=== PATIENT | male | born 2000 | race Caucasian/White ===

== ENCOUNTER 2025-04-24 11:29 | Inpatient (IN) | payer MEDICAID ==
[~2025-04-24] VITALS: Ht 167.6 cm; Wt 49.0 kg
[2025-04-24] VITALS (16 sets, daily range): BP systolic 78–123; BP diastolic 55–101; PULSE 51–89; RESP 7–23; TEMP 36.4–36.4736; O2SAT 99–100
[~2025-04-24 11:29] MED LIST: ATOR20TA PO
[2025-04-24 12:35] LABS: BASOPHILS % 0.6 % (0.0-2.0); EOSINOPHILS % 4.6 % (0.0-5.0); HEMATOCRIT. 43.3 % (42.0-52.0); HEMOGLOBIN. 14.9 g/dL (14.0-18.0); LYMPHOCYTES % 20.7 % (20.0-50.0); MEAN PLATELET VOLUME 11.5 fl (7.4-10.4); MONOCYTES % 10.5 % (2.0-8.0); NEUTROPHILS % 63.6 % (40.0-76.0); PLATELET 114 x1000/uL (130-400); RED BLOOD CELL COUNT 4.52 mill/uL (4.7-6.1); RED CELL DISTRIBUTION WIDTH 12.7 % (11.6-14.6)
[2025-04-24 13:00] LABS: CREATININE 0.6 mg/dL (0.6-1.3); UREA NITROGEN BLOOD 14 mg/dL (9-23)
[2025-04-24] MEDS ORDERED: MIDAZOLAM HCL 2 MG/2 ML VIAL IV NR (14:15)
[2025-04-24] MEDS: MIDAZOLAM HCL 2 MG/2 ML VIAL IV ONE ×3 (14:20→15:05)
[2025-04-24] MEDS ORDERED: FENTANYL 2500MCG/250ML PMX 250 ML IV PRN ×2 (15:00→21:30)
[2025-04-24] MEDS: PROPOFOL 10MG/ML 100ML 100 ML IV SCH ×2 (15:06→15:30)
[2025-04-24] MEDS: FENTANYL 2500MCG/250ML PMX 250 ML IV PRN (15:35)
[2025-04-24] MEDS ORDERED: IPRATROPIUM/ALBUTEROL 0.5-3(2.5)MG/3ML NEB HHN PRN (16:00)
[2025-04-24] MEDS ORDERED: CLONIDINE 0.1MG TABLET PO PRN (16:00)
[2025-04-24] MEDS ORDERED: DOCUSATE SODIUM 100MG CAPSULE PO PRN (16:00)
[2025-04-24] MEDS ORDERED: ONDANSETRON HCL 4MG/2ML INJ IV PRN (16:00)
[2025-04-24] MEDS ORDERED: HYDROCODONE/ACETAMINOPHEN 5/325MG TABLET PO PRN (16:00)
[2025-04-24] MEDS ORDERED: MAGNESIUM/ALUMINUM HYDROXIDE/SIMETHICONE 30ML UDC PO PRN (16:00)
[2025-04-24] MEDS ORDERED: NALOXONE HCL 0.4MG/ML VIAL IV PRN (16:00)
[2025-04-24] MEDS: SODIUM CHLORIDE 0.9% 1,000 ML IV SCH (16:06)
[2025-04-24 16:30] LABS: BG BASE EXCESS 6.2 mmol/L (-2.0-3.0); BG CARBOXYHEMOGLOBIN 0.2 % (0.5-1.5); BG DEOXYHEMOGLOBIN 0.2 % (0.0-5.0); BG FRACTION INSPIRED OXYGEN 100; BG HCO3 ACT 29.8 mmol/L (21.0-28.0); BG METHEMOGLOBIN 0.2 % (0.5-1.5); BG OXYGEN SATURATION 99.8 % (94.0-98.0); BG OXYHEMOGLOBIN 99.4 % (94.0-98.0); BG PCO2 39.4 mmHg (35.0-48.0); BG PEEP (cmH2O) 0 cmH2O; BG PH 7.497 (7.350-7.450); BG PO2 461.1 mmHg (83.0-108.0); BG SAMPLE SITE RIGHT RADIAL; BG TIDAL VOLUME(mL) 400.0 mL; BG TOTAL HEMOGLOBIN 15.0 g/dL (13.5-17.5); BG VENT MODE VENT - AC; BG VENT RATE 14.0 set
[2025-04-24] MEDS: PROPOFOL 10MG/ML 100ML 100 ML IV PRN (22:21)
[2025-04-24] MEDS: NOREPINEPHRINE 8MG/250ML PMX 250 ML IV PRN (22:24)
[2025-04-25] VITALS (106 sets, daily range): BP systolic 78–120; BP diastolic 46–91; PULSE 49–135; RESP 11–26; TEMP 34.7–38.6; O2SAT 10–100
[2025-04-25] MEDS: MIDAZOLAM 100MG/100ML PMX 100 ML IV PRN (03:27)
[2025-04-25 06:11] LABS: BASOPHILS % 0.5 % (0.0-2.0); EOSINOPHILS % 4.1 % (0.0-5.0); HEMATOCRIT. 38.7 % (42.0-52.0); HEMOGLOBIN. 13.2 g/dL (14.0-18.0); LYMPHOCYTES % 21.4 % (20.0-50.0); MEAN PLATELET VOLUME 11.6 fl (7.4-10.4); MONOCYTES % 9.3 % (2.0-8.0); NEUTROPHILS % 64.7 % (40.0-76.0); PLATELET 110 x1000/uL (130-400); RED BLOOD CELL COUNT 3.98 mill/uL (4.7-6.1); RED CELL DISTRIBUTION WIDTH 12.6 % (11.6-14.6)
[2025-04-25 06:23] LABS: CREATININE 0.5 mg/dL (0.6-1.3); TRIGLYCERIDE 105 mg/dL (0-150); UREA NITROGEN BLOOD 12 mg/dL (9-23)
[2025-04-25] MEDS: FENTANYL 2500MCG/250ML PMX 250 ML IV PRN (10:24)
[2025-04-25] MEDS ORDERED: IOHEXOL-300 100 ML BOTTLE ONE (13:29)
[2025-04-25 20:01] LABS: BG BASE EXCESS -0.7 mmol/L (-2.0-3.0); BG CARBOXYHEMOGLOBIN 1.0 % (0.5-1.5); BG DEOXYHEMOGLOBIN 2.2 % (0.0-5.0); BG FRACTION INSPIRED OXYGEN 40; BG HCO3 ACT 22.9 mmol/L (21.0-28.0); BG METHEMOGLOBIN 0.1 % (0.5-1.5); BG OXYGEN SATURATION 97.8 % (94.0-98.0); BG OXYHEMOGLOBIN 96.7 % (94.0-98.0); BG PCO2 35.0 mmHg (35.0-48.0); BG PH 7.434 (7.350-7.450); BG PIP 20.0 cmH2O; BG PO2 95.2 mmHg (83.0-108.0); BG SAMPLE SITE RIGHT RADIAL; BG TOTAL HEMOGLOBIN 14.4 g/dL (13.5-17.5); BG TOTAL RESPIRATORY RATE 12 b/min; BG VENT MODE VENT - P/C; BG VENT RATE 12.0 set
[2025-04-25] MEDS: ACETAMINOPHEN 325MG TABLET PO PRN (21:49)
[2025-04-26] VITALS (104 sets, daily range): BP systolic 81–130; BP diastolic 57–100; PULSE 59–95; RESP 9–16; TEMP 36.4–37.8; O2SAT 95–100
[2025-04-26] MEDS: PROPOFOL 10MG/ML 100ML 100 ML IV PRN (02:07)
[2025-04-26 06:51] LABS: BASOPHILS % 0.2 % (0.0-2.0); EOSINOPHILS % 1.5 % (0.0-5.0); HEMATOCRIT. 39.4 % (42.0-52.0); HEMOGLOBIN. 13.5 g/dL (14.0-18.0); LYMPHOCYTES % 20.8 % (20.0-50.0); MEAN PLATELET VOLUME 11.0 fl (7.4-10.4); MONOCYTES % 8.7 % (2.0-8.0); NEUTROPHILS % 68.8 % (40.0-76.0); PLATELET 110 x1000/uL (130-400); RED BLOOD CELL COUNT 4.05 mill/uL (4.7-6.1); RED CELL DISTRIBUTION WIDTH 12.6 % (11.6-14.6)
[2025-04-26 06:52] LABS: CREATININE 0.5 mg/dL (0.6-1.3); UREA NITROGEN BLOOD 8 mg/dL (9-23)
[2025-04-26] MEDS: MIDODRINE HCL 5MG TABLET PO SCH (08:44)
[2025-04-26] MEDS: ENOXAPARIN 40MG/0.4ML SYR SUBCUT SCH (08:45)
[2025-04-26] MEDS: PIPERACILLIN/TAZO 3.375G/50ML 50 ML IV SCH (10:44)
[2025-04-26 11:21] LABS: CLARITY URINE CLEAR (CLEAR); COLOR URINE YELLOW (YELLOW); GLUCOSE URINE NEGATIVE (NEGATIVE); KETONES URINE 2+ (NEGATIVE); LEUKOCYTE ESTERASE URINE 2+ (NEGATIVE); NITRITE URINE NEGATIVE (NEGATIVE); OCCULT BLOOD URINE NEGATIVE (NEGATIVE); PH URINE 6.5 (4.5-8.0); PROTEIN URINE NEGATIVE (NEGATIVE); SPECIFIC GRAVITY URINE 1.009 (1.005-1.030); UROBILINOGEN URINE 0.2 E.U./dL (0.2-1.0)
[2025-04-26 11:42] LABS: BACTERIA URINE NONE SEEN; RBC URINE 0-2 /hpf (0-2); SQUAMOUS EPITHELIAL CELL URINE RARE /lpf (RARE/1+); YEAST URINE NONE SEEN
[2025-04-26] MEDS: MINOXIDIL 2.5MG TABLET ONE (11:44)
[2025-04-26] MEDS: CHLORHEXIDINE GLUCONATE 4% EXTERNAL USE TOP SCH (20:26)
[2025-04-27] VITALS (92 sets, daily range): BP systolic 92–138; BP diastolic 64–111; PULSE 57–91; RESP 11–17; TEMP 35.8–37.2; O2SAT 96–100
[2025-04-27] MEDS: CHLORHEXIDINE GLUCONATE 4% EXTERNAL USE TOP SCH (05:12)
[2025-04-27 05:33] LABS: BASOPHILS % 0.2 % (0.0-2.0); EOSINOPHILS % 5.3 % (0.0-5.0); HEMATOCRIT. 37.4 % (42.0-52.0); HEMOGLOBIN. 12.7 g/dL (14.0-18.0); LYMPHOCYTES % 16.5 % (20.0-50.0); MEAN PLATELET VOLUME 11.7 fl (7.4-10.4); MONOCYTES % 6.9 % (2.0-8.0); NEUTROPHILS % 71.1 % (40.0-76.0); PLATELET 108 x1000/uL (130-400); RED BLOOD CELL COUNT 3.86 mill/uL (4.7-6.1); RED CELL DISTRIBUTION WIDTH 12.9 % (11.6-14.6)
[2025-04-27 05:41] LABS: CREATININE 0.5 mg/dL (0.6-1.3); TRIGLYCERIDE 143 mg/dL (0-150); UREA NITROGEN BLOOD 5 mg/dL (9-23)
[2025-04-27] MEDS: PROPOFOL 10MG/ML 100ML 100 ML IV PRN (07:19)
[2025-04-27] MEDS ORDERED: LIDOCAINE HCL/EPINEPHRINE 1%-EPI 1:100,000 20ML VIAL ONE (07:34)
[2025-04-27] MEDS ORDERED: ROCURONIUM BROMIDE 10MG/ML VIAL 5ML IV ONE (08:10)
[2025-04-27] MEDS ORDERED: PROPOFOL 200MG/20ML VIAL IV ONE (08:10)
[2025-04-27] MEDS ORDERED: FENTANYL CITRATE/PF 50MCG/ML 2ML VIAL ONE (08:11)
[2025-04-27] MEDS ORDERED: PHENYLEPHRINE HCL 10MG/ML 1ML IV ONE (08:30)
[2025-04-27] MEDS ORDERED: ONDANSETRON HCL 4MG/2ML INJ ONE (08:50)
[2025-04-27] MEDS ORDERED: METOCLOPRAMIDE HCL 10MG/2ML VIAL ONE (08:50)
[2025-04-27] MEDS ORDERED: SODIUM CHLORIDE 0.9% 500 ML IV PRN (10:00)
[2025-04-27] MEDS ORDERED: CALCIUM CHLORIDE 5,000 MG in DEXT 5% WATER 500 ML IV PRN (10:00)
[2025-04-27] MEDS ORDERED: CALCIUM CHLORIDE 3,000 MG in DEXT 5% WATER 250 ML IV PRN (10:00)
[2025-04-27] MEDS ORDERED: DEXMEDETOMIDINE 100 ML IV PRN (10:45)
[2025-04-27] MEDS: DEXMEDETOMIDINE 250 ML IV PRN (10:57)
[2025-04-27] MEDS: IPRATROPIUM/ALBUTEROL 0.5-3(2.5)MG/3ML NEB HHN SCH (13:57)
[2025-04-27] MEDS: MIDAZOLAM 100MG/100ML PMX 100 ML IV PRN (15:35)
[2025-04-27 15:56] LABS: BASOPHILS % 0.2 % (0.0-2.0); EOSINOPHILS % 3.2 % (0.0-5.0); HEMATOCRIT. 36.4 % (42.0-52.0); HEMOGLOBIN. 12.8 g/dL (14.0-18.0); LYMPHOCYTES % 16.6 % (20.0-50.0); MEAN PLATELET VOLUME 11.5 fl (7.4-10.4); MONOCYTES % 7.5 % (2.0-8.0); NEUTROPHILS % 72.5 % (40.0-76.0); PLATELET 103 x1000/uL (130-400); RED BLOOD CELL COUNT 3.81 mill/uL (4.7-6.1); RED CELL DISTRIBUTION WIDTH 12.8 % (11.6-14.6)
[2025-04-27] MEDS: MIDODRINE HCL 5MG TABLET PO SCH (16:03)
[2025-04-27 16:09] LABS: CREATININE 0.4 mg/dL (0.6-1.3); UREA NITROGEN BLOOD < 5 mg/dL (9-23)
[2025-04-27] MEDS ORDERED: KCL 10MEQ/50ML PREMIX 100 ML IV PRN (16:30)
[2025-04-27] MEDS: MAGNESIUM 2 G PREMIX 50 ML IV SCH (16:39)
[2025-04-27] MEDS: KCL 10MEQ/50ML PREMIX 150 ML IV PRN (16:39)
[2025-04-28] VITALS (102 sets, daily range): BP systolic 74–144; BP diastolic 41–113; PULSE 74–138; RESP 12–23; TEMP 36–38.6; O2SAT 94–100
[2025-04-28 06:18] LABS: BASOPHILS % 0.4 % (0.0-2.0); EOSINOPHILS % 2.4 % (0.0-5.0); HEMATOCRIT. 39.9 % (42.0-52.0); HEMOGLOBIN. 13.6 g/dL (14.0-18.0); LYMPHOCYTES % 10.4 % (20.0-50.0); MEAN PLATELET VOLUME 12.0 fl (7.4-10.4); MONOCYTES % 6.9 % (2.0-8.0); NEUTROPHILS % 79.9 % (40.0-76.0); PLATELET 108 x1000/uL (130-400); RED BLOOD CELL COUNT 4.03 mill/uL (4.7-6.1); RED CELL DISTRIBUTION WIDTH 12.9 % (11.6-14.6)
[2025-04-28 06:33] LABS: CREATININE 0.5 mg/dL (0.6-1.3)
[2025-04-28 06:34] LABS: UREA NITROGEN BLOOD 5 mg/dL (9-23)
[2025-04-28] MEDS ORDERED: LIDOCAINE HCL 1% 10 MG/ML 10ML VIAL ONE (08:11)
[2025-04-28 09:51] LABS: BG BASE EXCESS -7.6 mmol/L (-2.0-3.0); BG CARBOXYHEMOGLOBIN 0.2 % (0.5-1.5); BG DEOXYHEMOGLOBIN 3.4 % (0.0-5.0); BG FRACTION INSPIRED OXYGEN 40; BG HCO3 ACT 15.5 mmol/L (21.0-28.0); BG METHEMOGLOBIN 0.3 % (0.5-1.5); BG OXYGEN SATURATION 96.6 % (94.0-98.0); BG OXYHEMOGLOBIN 96.1 % (94.0-98.0); BG PCO2 25.2 mmHg (35.0-48.0); BG PH 7.406 (7.350-7.450); BG PIP 20.0 cmH2O; BG PO2 87.2 mmHg (83.0-108.0); BG SAMPLE SITE ALINE; BG TOTAL HEMOGLOBIN 12.3 g/dL (13.5-17.5); BG VENT MODE VENT - P/C; BG VENT RATE 12.0 set
[2025-04-28] MEDS: LACTATED RINGERS 500 ML IV SCH (17:02)
[2025-04-28] MEDS ORDERED: DEXMEDETOMIDINE 250 ML IV PRN (20:00)
[2025-04-29] VITALS (107 sets, daily range): BP systolic 71–149; BP diastolic 42–108; PULSE 69–110; RESP 10–20; TEMP 36.5–37; O2SAT 97–100
[2025-04-29] MEDS ORDERED: HYDR-459 PO (01:17)
[2025-04-29] MEDS ORDERED: LEVO75TA7 PO (01:17)
[2025-04-29] MEDS ORDERED: OMEP10SU2 PO (01:17)
[2025-04-29] MEDS ORDERED: HYDR-3735 PO (01:17)
[2025-04-29 06:19] LABS: BASOPHILS % 0.2 % (0.0-2.0); EOSINOPHILS % 4.4 % (0.0-5.0); HEMATOCRIT. 36.4 % (42.0-52.0); HEMOGLOBIN. 12.6 g/dL (14.0-18.0); LYMPHOCYTES % 14.8 % (20.0-50.0); MEAN PLATELET VOLUME 11.0 fl (7.4-10.4); MONOCYTES % 8.0 % (2.0-8.0); NEUTROPHILS % 72.6 % (40.0-76.0); PLATELET 108 x1000/uL (130-400); RED BLOOD CELL COUNT 3.78 mill/uL (4.7-6.1); RED CELL DISTRIBUTION WIDTH 12.5 % (11.6-14.6)
[2025-04-29 06:46] LABS: CREATININE 0.5 mg/dL (0.6-1.3)
[2025-04-29 06:47] LABS: UREA NITROGEN BLOOD < 5 mg/dL (9-23)
[2025-04-29 14:02] LABS: BG BASE EXCESS -0.6 mmol/L (-2.0-3.0); BG CARBOXYHEMOGLOBIN 0.2 % (0.5-1.5); BG DEOXYHEMOGLOBIN 0.9 % (0.0-5.0); BG FRACTION INSPIRED OXYGEN 40; BG HCO3 ACT 21.7 mmol/L (21.0-28.0); BG METHEMOGLOBIN 0.3 % (0.5-1.5); BG OXYGEN SATURATION 99.1 % (94.0-98.0); BG OXYHEMOGLOBIN 98.6 % (94.0-98.0); BG PCO2 30.2 mmHg (35.0-48.0); BG PEEP (cmH2O) 0 cmH2O; BG PH 7.475 (7.350-7.450); BG PO2 135.8 mmHg (83.0-108.0); BG SAMPLE SITE ALINE; BG TOTAL HEMOGLOBIN 16.5 g/dL (13.5-17.5); BG VENT MODE VENT - P/C; BG VENT RATE 12.0 set
[2025-04-30] VITALS (97 sets, daily range): BP systolic 70–143; BP diastolic 38–107; PULSE 82–118; RESP 12–21; TEMP 36.3–37.2; O2SAT 80–100
[2025-04-30 06:30] LABS: BASOPHILS % 0.5 % (0.0-2.0); EOSINOPHILS % 7.5 % (0.0-5.0); HEMATOCRIT. 38.8 % (42.0-52.0); HEMOGLOBIN. 13.2 g/dL (14.0-18.0); LYMPHOCYTES % 18.9 % (20.0-50.0); MEAN PLATELET VOLUME 11.2 fl (7.4-10.4); MONOCYTES % 7.8 % (2.0-8.0); NEUTROPHILS % 65.3 % (40.0-76.0); PLATELET 122 x1000/uL (130-400); RED BLOOD CELL COUNT 4.00 mill/uL (4.7-6.1); RED CELL DISTRIBUTION WIDTH 12.6 % (11.6-14.6)
[2025-04-30 06:53] LABS: INR 0.9
[2025-04-30 06:58] LABS: CREATININE 0.5 mg/dL (0.6-1.3); UREA NITROGEN BLOOD 6 mg/dL (9-23)
[2025-04-30 07:00] LABS: PHOSPHORUS 3.7 mg/dL (2.5-4.9)
[2025-04-30 08:51] LABS: BG BASE EXCESS -1.2 mmol/L (-2.0-3.0); BG CARBOXYHEMOGLOBIN 0.7 % (0.5-1.5); BG DEOXYHEMOGLOBIN 1.5 % (0.0-5.0); BG FRACTION INSPIRED OXYGEN 40; BG HCO3 ACT 24.3 mmol/L (21.0-28.0); BG METHEMOGLOBIN 0.1 % (0.5-1.5); BG OXYGEN SATURATION 98.5 % (94.0-98.0); BG OXYHEMOGLOBIN 97.7 % (94.0-98.0); BG PCO2 43.6 mmHg (35.0-48.0); BG PH 7.364 (7.350-7.450); BG PIP 20.0 cmH2O; BG PO2 119.4 mmHg (83.0-108.0); BG SAMPLE SITE RIGHT RADIAL; BG TOTAL HEMOGLOBIN 14.2 g/dL (13.5-17.5); BG TOTAL RESPIRATORY RATE 12 b/min; BG VENT MODE VENT - P/C; BG VENT RATE 12.0 set
[2025-04-30] MEDS: MIDODRINE HCL 5MG TABLET PO SCH (14:02)
[2025-04-30] MEDS: MAGNESIUM 2 G PREMIX 50 ML IV NR (14:02)
[2025-04-30] MEDS ORDERED: FENTANYL 2500MCG/250ML PMX 250 ML IV PRN (16:00)
[2025-04-30] MEDS: FENTANYL 2500MCG/250ML PMX 250 ML IV PRN (17:06)
[2025-05-01] VITALS (113 sets, daily range): BP systolic 76–123; BP diastolic 39–109; PULSE 86–126; RESP 12–28; TEMP 36.6–37.9; O2SAT 96–100
[2025-05-01 07:19] LABS: BASOPHILS % 0.2 % (0.0-2.0); EOSINOPHILS % 4.8 % (0.0-5.0); HEMATOCRIT. 37.7 % (42.0-52.0); HEMOGLOBIN. 12.9 g/dL (14.0-18.0); LYMPHOCYTES % 17.4 % (20.0-50.0); MEAN PLATELET VOLUME 10.9 fl (7.4-10.4); MONOCYTES % 9.5 % (2.0-8.0); NEUTROPHILS % 68.1 % (40.0-76.0); PLATELET 130 x1000/uL (130-400); RED BLOOD CELL COUNT 3.82 mill/uL (4.7-6.1); RED CELL DISTRIBUTION WIDTH 12.7 % (11.6-14.6)
[2025-05-01 07:40] LABS: CREATININE 0.6 mg/dL (0.6-1.3); UREA NITROGEN BLOOD 9 mg/dL (9-23)
[2025-05-01] MEDS: QUETIAPINE FUMARATE 25MG TABLET PO SCH ×2 (08:54→20:54)
[2025-05-01] MEDS: ACETAMINOPHEN 325MG TABLET PO PRN (12:27)
[2025-05-01] MEDS: DEXT 5%/0.9% NACL 1,000 ML IV SCH (15:38)
[2025-05-01] MEDS ORDERED: QUETIAPINE FUMARATE 25MG TABLET PO SCH (21:00)
[2025-05-02] VITALS (108 sets, daily range): BP systolic 75–158; BP diastolic 53–136; PULSE 71–142; RESP 10–28; TEMP 36.6–37.7; O2SAT 97–100
[2025-05-02] MEDS: MIDODRINE HCL 5MG TABLET PO SCH (00:11)
[2025-05-02] MEDS: METOCLOPRAMIDE HCL 10MG/2ML VIAL IV SCH (01:06)
[2025-05-02 05:41] LABS: BASOPHILS % 0.4 % (0.0-2.0); EOSINOPHILS % 2.6 % (0.0-5.0); HEMATOCRIT. 36.0 % (42.0-52.0); HEMOGLOBIN. 12.0 g/dL (14.0-18.0); LYMPHOCYTES % 21.2 % (20.0-50.0); MEAN PLATELET VOLUME 10.2 fl (7.4-10.4); MONOCYTES % 11.3 % (2.0-8.0); NEUTROPHILS % 64.5 % (40.0-76.0); PLATELET 155 x1000/uL (130-400); RED BLOOD CELL COUNT 3.65 mill/uL (4.7-6.1); RED CELL DISTRIBUTION WIDTH 12.5 % (11.6-14.6)
[2025-05-02 05:54] LABS: CREATININE 0.5 mg/dL (0.6-1.3); UREA NITROGEN BLOOD 6 mg/dL (9-23)
[2025-05-02 11:04] LABS: BG BASE EXCESS 3.4 mmol/L (-2.0-3.0); BG CARBOXYHEMOGLOBIN 0.0 % (0.5-1.5); BG DEOXYHEMOGLOBIN 2.0 % (0.0-5.0); BG FRACTION INSPIRED OXYGEN 40; BG HCO3 ACT 28.2 mmol/L (21.0-28.0); BG METHEMOGLOBIN 0.3 % (0.5-1.5); BG OXYGEN SATURATION 98.0 % (94.0-98.0); BG OXYHEMOGLOBIN 97.7 % (94.0-98.0); BG PCO2 43.5 mmHg (35.0-48.0); BG PEEP (cmH2O) 5.0 cmH2O; BG PH 7.429 (7.350-7.450); BG PO2 103.5 mmHg (83.0-108.0); BG SAMPLE SITE RIGHT RADIAL; BG TIDAL VOLUME(mL) 400.0 mL; BG TOTAL HEMOGLOBIN 13.8 g/dL (13.5-17.5); BG VENT MODE VENT - SIMV; BG VENT RATE 10.0 set
[2025-05-02] MEDS ORDERED: DEXMEDETOMIDINE 250 ML IV PRN (20:00)
[2025-05-02] MEDS: QUETIAPINE FUMARATE 25MG TABLET PO SCH (20:39)
[2025-05-03] VITALS (69 sets, daily range): BP systolic 85–137; BP diastolic 43–125; PULSE 83–143; RESP 12–28; TEMP 36.6–38.6; O2SAT 98–100
[2025-05-03 07:19] LABS: CREATININE 0.5 mg/dL (0.6-1.3); UREA NITROGEN BLOOD < 5 mg/dL (9-23)
[2025-05-03 09:14] LABS: BG BASE EXCESS -0.9 mmol/L (-2.0-3.0); BG CARBOXYHEMOGLOBIN 0.9 % (0.5-1.5); BG DEOXYHEMOGLOBIN 2.0 % (0.0-5.0); BG FRACTION INSPIRED OXYGEN 40; BG HCO3 ACT 24.2 mmol/L (21.0-28.0); BG METHEMOGLOBIN 0.1 % (0.5-1.5); BG OXYGEN SATURATION 98.0 % (94.0-98.0); BG OXYHEMOGLOBIN 97.0 % (94.0-98.0); BG PCO2 41.6 mmHg (35.0-48.0); BG PEEP (cmH2O) 5.0 cmH2O; BG PH 7.382 (7.350-7.450); BG PO2 102.1 mmHg (83.0-108.0); BG SAMPLE SITE RIGHT RADIAL; BG TIDAL VOLUME(mL) 400.0 mL; BG TOTAL HEMOGLOBIN 12.5 g/dL (13.5-17.5); BG VENT MODE VENT - SIMV; BG VENT RATE 16.0 set
[2025-05-03 10:25] LABS: BASOPHILS % 0.4 % (0.0-2.0); EOSINOPHILS % 0.5 % (0.0-5.0); HEMATOCRIT. 36.0 % (42.0-52.0); HEMOGLOBIN. 12.4 g/dL (14.0-18.0); LYMPHOCYTES % 8.1 % (20.0-50.0); MEAN PLATELET VOLUME 10.0 fl (7.4-10.4); MONOCYTES % 10.3 % (2.0-8.0); NEUTROPHILS % 80.7 % (40.0-76.0); PLATELET 174 x1000/uL (130-400); RED BLOOD CELL COUNT 3.71 mill/uL (4.7-6.1); RED CELL DISTRIBUTION WIDTH 12.8 % (11.6-14.6)
[2025-05-03] MEDS: LORAZEPAM 2MG/ML UD SYRINGE IV PRN (13:57)
[2025-05-03] MEDS: IPRATROPIUM/ALBUTEROL 0.5-3(2.5)MG/3ML NEB HHN SCH (16:35)
[2025-05-04] VITALS (72 sets, daily range): BP systolic 93–134; BP diastolic 62–94; PULSE 101–145; RESP 13–30; TEMP 36.8–38.7; O2SAT 90–100
[2025-05-04 06:32] LABS: BASOPHILS % 0.2 % (0.0-2.0); EOSINOPHILS % 0.1 % (0.0-5.0); HEMATOCRIT. 32.7 % (42.0-52.0); HEMOGLOBIN. 11.3 g/dL (14.0-18.0); LYMPHOCYTES % 9.8 % (20.0-50.0); MEAN PLATELET VOLUME 9.5 fl (7.4-10.4); MONOCYTES % 10.4 % (2.0-8.0); NEUTROPHILS % 79.5 % (40.0-76.0); PLATELET 175 x1000/uL (130-400); RED BLOOD CELL COUNT 3.38 mill/uL (4.7-6.1); RED CELL DISTRIBUTION WIDTH 12.5 % (11.6-14.6)
[2025-05-04 06:54] LABS: CREATININE 0.5 mg/dL (0.6-1.3); UREA NITROGEN BLOOD 6 mg/dL (9-23)
[2025-05-04] MEDS: KCL 10MEQ/50ML PREMIX 200 ML IV PRN (10:33)
[2025-05-04 12:33] LABS: BG BASE EXCESS 1.5 mmol/L (-2.0-3.0); BG CARBOXYHEMOGLOBIN 0.3 % (0.5-1.5); BG DEOXYHEMOGLOBIN 1.1 % (0.0-5.0); BG FRACTION INSPIRED OXYGEN 40; BG HCO3 ACT 25.6 mmol/L (21.0-28.0); BG METHEMOGLOBIN 0.3 % (0.5-1.5); BG OXYGEN SATURATION 98.9 % (94.0-98.0); BG OXYHEMOGLOBIN 98.3 % (94.0-98.0); BG PCO2 38.4 mmHg (35.0-48.0); BG PEEP (cmH2O) 5.0 cmH2O; BG PH 7.441 (7.350-7.450); BG PO2 134.7 mmHg (83.0-108.0); BG SAMPLE SITE LEFT RADIAL; BG TIDAL VOLUME(mL) 400.0 mL; BG TOTAL HEMOGLOBIN 12.2 g/dL (13.5-17.5); BG TOTAL RESPIRATORY RATE 24 b/min; BG VENT MODE VENT - SIMV; BG VENT RATE 8.0 set
[2025-05-05] VITALS (52 sets, daily range): BP systolic 93–126; BP diastolic 56–92; PULSE 86–127; RESP 11–27; TEMP 36.2–37.2; O2SAT 60–100
[2025-05-05 06:01] LABS: BASOPHILS % 0.3 % (0.0-2.0); EOSINOPHILS % 0.5 % (0.0-5.0); HEMATOCRIT. 32.8 % (42.0-52.0); HEMOGLOBIN. 11.3 g/dL (14.0-18.0); LYMPHOCYTES % 17.2 % (20.0-50.0); MEAN PLATELET VOLUME 9.3 fl (7.4-10.4); MONOCYTES % 9.1 % (2.0-8.0); NEUTROPHILS % 72.9 % (40.0-76.0); PLATELET 181 x1000/uL (130-400); RED BLOOD CELL COUNT 3.35 mill/uL (4.7-6.1); RED CELL DISTRIBUTION WIDTH 12.5 % (11.6-14.6)
[2025-05-05 06:20] LABS: CREATININE 0.5 mg/dL (0.6-1.3)
[2025-05-05 06:21] LABS: UREA NITROGEN BLOOD < 5 mg/dL (9-23)
[2025-05-05 06:22] LABS: ASPARTATE AMINOTRANSFERASE 13 IU/L (<34)
[2025-05-05 06:23] LABS: BILIRUBIN DIRECT < 0.1 mg/dL (<=3.0); BILIRUBIN TOTAL 0.3 mg/dL (0.1-1.0); PHOSPHORUS 2.7 mg/dL (2.5-4.9); PROTEIN TOTAL 7.1 g/dL (6.0-8.3)
[2025-05-05 14:40] LABS: CLARITY URINE CLEAR (CLEAR); COLOR URINE YELLOW (YELLOW); GLUCOSE URINE NEGATIVE (NEGATIVE); KETONES URINE 3+ (NEGATIVE); LEUKOCYTE ESTERASE URINE NEGATIVE (NEGATIVE); NITRITE URINE NEGATIVE (NEGATIVE); OCCULT BLOOD URINE NEGATIVE (NEGATIVE); PH URINE 7.0 (4.5-8.0); PROTEIN URINE NEGATIVE (NEGATIVE); SPECIFIC GRAVITY URINE 1.016 (1.005-1.030); UROBILINOGEN URINE 0.2 E.U./dL (0.2-1.0)
[2025-05-05] MEDS: CEFEPIME 2GM/100ML 100 ML IV SCH (14:48)
[2025-05-05 15:29] LABS: BG BASE EXCESS 3.3 mmol/L (-2.0-3.0); BG CARBOXYHEMOGLOBIN 0.0 % (0.5-1.5); BG DEOXYHEMOGLOBIN 2.2 % (0.0-5.0); BG FRACTION INSPIRED OXYGEN 40; BG HCO3 ACT 28.2 mmol/L (21.0-28.0); BG METHEMOGLOBIN 0.3 % (0.5-1.5); BG OXYGEN SATURATION 97.8 % (94.0-98.0); BG OXYHEMOGLOBIN 97.5 % (94.0-98.0); BG PCO2 44.1 mmHg (35.0-48.0); BG PEEP (cmH2O) 5.0 cmH2O; BG PH 7.424 (7.350-7.450); BG PO2 99.1 mmHg (83.0-108.0); BG SAMPLE SITE RIGHT RADIAL; BG TIDAL VOLUME(mL) 400.0 mL; BG TOTAL HEMOGLOBIN 12.7 g/dL (13.5-17.5); BG VENT MODE VENT - SIMV; BG VENT RATE 6.0 set
[2025-05-05 17:17] LABS: BG BASE EXCESS 1.8 mmol/L (-2.0-3.0); BG CARBOXYHEMOGLOBIN 0.1 % (0.5-1.5); BG DEOXYHEMOGLOBIN 1.0 % (0.0-5.0); BG FRACTION INSPIRED OXYGEN 40; BG HCO3 ACT 26.1 mmol/L (21.0-28.0); BG METHEMOGLOBIN 0.3 % (0.5-1.5); BG OXYGEN SATURATION 99.0 % (94.0-98.0); BG OXYHEMOGLOBIN 98.6 % (94.0-98.0); BG PCO2 39.7 mmHg (35.0-48.0); BG PEEP (cmH2O) 5.0 cmH2O; BG PH 7.435 (7.350-7.450); BG PO2 130.0 mmHg (83.0-108.0); BG SAMPLE SITE RIGHT RADIAL; BG TIDAL VOLUME(mL) 400.0 mL; BG TOTAL HEMOGLOBIN 13.4 g/dL (13.5-17.5); BG VENT MODE VENT - SIMV; BG VENT RATE 4.0 set
[2025-05-06] VITALS (66 sets, daily range): BP systolic 95–123; BP diastolic 65–94; PULSE 79–125; RESP 11–29; TEMP 36.8–36.9; O2SAT 99–100
[2025-05-07] VITALS (64 sets, daily range): BP systolic 99–127; BP diastolic 64–91; PULSE 81–139; RESP 9–24; TEMP 36.7–37.5; O2SAT 100
[2025-05-07 07:45] LABS: BASOPHILS % 0.4 % (0.0-2.0); EOSINOPHILS % 2.6 % (0.0-5.0); HEMATOCRIT. 34.7 % (42.0-52.0); HEMOGLOBIN. 11.8 g/dL (14.0-18.0); LYMPHOCYTES % 20.7 % (20.0-50.0); MEAN PLATELET VOLUME 9.4 fl (7.4-10.4); MONOCYTES % 8.5 % (2.0-8.0); NEUTROPHILS % 67.8 % (40.0-76.0); PLATELET 262 x1000/uL (130-400); RED BLOOD CELL COUNT 3.54 mill/uL (4.7-6.1); RED CELL DISTRIBUTION WIDTH 12.5 % (11.6-14.6)
[2025-05-07 08:05] LABS: CREATININE 0.6 mg/dL (0.6-1.3); UREA NITROGEN BLOOD 8 mg/dL (9-23)
[2025-05-08] VITALS (20 sets, daily range): BP systolic 104–118; BP diastolic 67–88; PULSE 99–132; RESP 11–25; TEMP 36.5–36.9; O2SAT 85–100
[2025-05-09] VITALS (20 sets, daily range): BP systolic 95–121; BP diastolic 67–89; PULSE 93–126; RESP 16–27; TEMP 36.7–37.4; O2SAT 99–100
[2025-05-09 06:08] LABS: BASOPHILS % 0.4 % (0.0-2.0); EOSINOPHILS % 2.0 % (0.0-5.0); HEMATOCRIT. 37.0 % (42.0-52.0); HEMOGLOBIN. 12.5 g/dL (14.0-18.0); LYMPHOCYTES % 14.7 % (20.0-50.0); MEAN PLATELET VOLUME 9.2 fl (7.4-10.4); MONOCYTES % 9.4 % (2.0-8.0); NEUTROPHILS % 73.5 % (40.0-76.0); PLATELET 294 x1000/uL (130-400); RED BLOOD CELL COUNT 3.79 mill/uL (4.7-6.1); RED CELL DISTRIBUTION WIDTH 12.4 % (11.6-14.6)
[2025-05-09 06:32] LABS: CREATININE 0.6 mg/dL (0.6-1.3); UREA NITROGEN BLOOD 12 mg/dL (9-23)
[2025-05-10] VITALS (20 sets, daily range): BP systolic 93–119; BP diastolic 52–91; PULSE 74–111; RESP 11–30; TEMP 36.4–36.8; O2SAT 96–100
[2025-05-11] VITALS (15 sets, daily range): BP systolic 95–112; BP diastolic 61–90; PULSE 76–103; RESP 8–22; TEMP 36.5–37; O2SAT 28–100
[2025-05-11 05:37] LABS: BASOPHILS % 1.0 % (0.0-2.0); EOSINOPHILS % 3.8 % (0.0-5.0); HEMATOCRIT. 36.5 % (42.0-52.0); HEMOGLOBIN. 12.4 g/dL (14.0-18.0); LYMPHOCYTES % 27.7 % (20.0-50.0); MEAN PLATELET VOLUME 9.2 fl (7.4-10.4); MONOCYTES % 13.0 % (2.0-8.0); NEUTROPHILS % 54.5 % (40.0-76.0); PLATELET 306 x1000/uL (130-400); RED BLOOD CELL COUNT 3.72 mill/uL (4.7-6.1); RED CELL DISTRIBUTION WIDTH 12.6 % (11.6-14.6)
[2025-05-11 05:52] LABS: CREATININE 0.6 mg/dL (0.6-1.3)
[2025-05-11 05:53] LABS: UREA NITROGEN BLOOD 15 mg/dL (9-23)
[2025-05-12] VITALS (14 sets, daily range): BP systolic 94–116; BP diastolic 64–89; PULSE 76–104; RESP 16–28; TEMP 36.4–36.9; O2SAT 99–100
[2025-05-12 05:23] LABS: BASOPHILS % 1.1 % (0.0-2.0); EOSINOPHILS % 4.1 % (0.0-5.0); HEMATOCRIT. 37.6 % (42.0-52.0); HEMOGLOBIN. 12.7 g/dL (14.0-18.0); LYMPHOCYTES % 33.6 % (20.0-50.0); MEAN PLATELET VOLUME 9.2 fl (7.4-10.4); MONOCYTES % 14.2 % (2.0-8.0); NEUTROPHILS % 47.0 % (40.0-76.0); PLATELET 299 x1000/uL (130-400); RED BLOOD CELL COUNT 3.88 mill/uL (4.7-6.1); RED CELL DISTRIBUTION WIDTH 12.6 % (11.6-14.6)
[2025-05-12 05:37] LABS: CREATININE 0.6 mg/dL (0.6-1.3); UREA NITROGEN BLOOD 16 mg/dL (9-23)
[2025-05-12] MEDS ORDERED: MIDO5TAB4 PO (10:27)
[2025-05-12] MEDS ORDERED: QUET25TA PO (10:27)
[2025-05-13] VITALS (19 sets, daily range): BP systolic 94–113; BP diastolic 52–83; PULSE 77–110; RESP 14–24; TEMP 36.7–37.2; O2SAT 98–100
[2025-05-13] MEDS ORDERED: IPRATROPIUM/ALBUTEROL 0.5-3(2.5)MG/3ML NEB HHN SCH (22:00)
[2025-05-14] VITALS (9 sets, daily range): BP systolic 89–99; BP diastolic 60–71; PULSE 72–91; RESP 14–18; TEMP 36.4–36.7; O2SAT 99–100
[2025-05-14] MEDS: SODIUM CHLORIDE 0.9% (SEPSIS BOLUS) IV NR (15:27)
== END 2025-05-14 16:50 | disposition home or self-care (01) | DRG 121 ==
LOC: ER 11:43 → CVICU 15:29 → EDBEDREQSVC 15:42 → EDBEDREQTM 15:42 → EDBEDREQ 15:42 → ENRESERV 19:50 → 5EST 05-06 14:05
PROVIDERS: ADMIT Internal Medicine; ATTEND Internal Medicine
PROC: 5A1945Z Respiratory Ventilation, 24-96 Consecutive Hours (ICD-10-PCS; 2025-04-24)
PROC: 5A1955Z Respiratory Ventilation, Greater than 96 Consecutive Hours (ICD-10-PCS; principal; 2025-04-27)
PROC: 0BW10FZ Revision of Tracheostomy Device in Trachea, Open Approach (ICD-10-PCS; 2025-04-27)
PROC: 02HV33Z Insertion of Infusion Device into Superior Vena Cava, Percutaneous Approach (ICD-10-PCS; 2025-04-28)
PROC: B548ZZA Ultrasonography of Superior Vena Cava, Guidance (ICD-10-PCS; 2025-04-28)
DX: J95.03 Malfunction of tracheostomy stoma (principal); R65.21 Severe sepsis with septic shock; J96.21 Acute and chronic respiratory failure with hypoxia; G93.40 Encephalopathy, unspecified; A41.9 Sepsis, unspecified organism; E87.20 Acidosis, unspecified; J18.9 Pneumonia, unspecified organism; J39.8 Other specified diseases of upper respiratory tract; K56.7 Ileus, unspecified; I95.9 Hypotension, unspecified; G80.9 Cerebral palsy, unspecified; E87.6 Hypokalemia; G35 Multiple sclerosis; F39 Unspecified mood [affective] disorder; Z78.1 Physical restraint status
CPT/HCPCS: 31720; 36415; 36573; 36600; 70491; 71045; 71260; 74018; 80048; 80053; 80076; 81003; 82375; 82805; 82962; 83605; 83735; 84100; 84145; 84478; 85025; 86850; 86900; 87070; 93005; 93306; 94002; 94003; 94070; 94640; 94664; 94760; 98960; 99291; A4606; C1725; J0692; J1650; J2003; J2004; J2060; J2250; J2371; J2405; J2543; J2704; J2765; J3010; J3475; J3480; J3490; J7042; Q9967